=== PATIENT | female | born 1985 | race Hispanic/Latino ===

== ENCOUNTER 2025-03-27 14:03 | Inpatient (IN) | payer BC ==
[2025-03-27] VITALS (7 sets, daily range): BP systolic 90–100; BP diastolic 58–72; PULSE 79–122; RESP 16–20; TEMP 98–100.6; O2SAT 95–100
[~2025-03-27] VITALS: Ht 165.1 cm; Wt 75.6 kg
[2025-03-27] MEDS: ALBUTEROL/IPRATROPIUM 3 ML NEB NEB ONE (14:33)
[2025-03-27] MEDS: SODIUM CHLORIDE 0.9% 1000ML 1,000 ML IV ONE ×2 (15:42→16:47)
[2025-03-27] MEDS: AZITHROMYCIN 250 MG TAB PO ONE (15:42)
[2025-03-27] MEDS ORDERED: ONDANSETRON HCL INJ 2MG/ML 2ML 2 MG/ML VIAL ONE (15:54)
[2025-03-27] MEDS: ONDANSETRON HCL INJ 2MG/ML 2ML 2 MG/ML VIAL IV STA (15:57)
[2025-03-27] MEDS: ALBUTEROL SULF 0.083% NEB SOLN 3 ML NEB NEB SCH (16:30)
[2025-03-27] MEDS: ACETAMINOPHEN 325 MG TAB PO PRN (18:33)
[2025-03-27] MEDS: SODIUM CHLORIDE 0.9% 1000ML 1,000 ML IV SCH (18:35)
[2025-03-27] MEDS: IPRATROPIUM BROMIDE 0.02% 2.5 ML NEB NEB SCH (20:02)
[2025-03-27] MEDS: LEVALBUTEROL HCL SOLN NEBU 0.63 MG/3 ML NEB INH PRN (20:03)
[2025-03-28] VITALS (13 sets, daily range): BP systolic 92–109; BP diastolic 65–73; PULSE 98–122; RESP 14–20; TEMP 99.1–101.1; O2SAT 92–100
[2025-03-28 00:26] LABS: TROPONIN I 0.087 ng/mL (0-0.300)
[2025-03-28 03:31] LABS: TROPONIN I 0.114 ng/mL (0-0.300)
[2025-03-28 06:50] LABS: BASOPHILS # (AUTO) 0.1 (0.0-0.1); BASOPHILS % 0.5 % (0.0-1.0); EOSINOPHILS % 0.2 % (0.0-6.0); HEMATOCRIT 34.6 % (34.2-44.1); HEMOGLOBIN 12.3 g/dL (12.0-16.0); LYMPHOCYTES # (AUTO) 0.7 (1.0-3.2); LYMPHOCYTES % 7.8 % (18.0-39.1); MEAN CORPUSCULAR HEMOGLOBIN 33.5 pg (28-32); MEAN CORPUSCULAR HGB CONC 35.5 g/dL (31-35); MEAN CORPUSCULAR VOLUME 94.3 fL (81-99); MONOCYTES # (AUTO) 0.3 (0.2-0.8); MONOCYTES % 3.4 % (4.4-11.3); RED BLOOD COUNT 3.67 x10e6/uL (3.6-5.1); RED CELL DISTRIBUTION WIDTH 12.2 % (11.7-14.4); WHITE BLOOD COUNT 9.15 x10e3/uL (4.8-10.8)
[2025-03-28 07:00] LABS: PLATELET COUNT 42 x10e3/uL (140-360)
[2025-03-28 07:34] LABS: ANION GAP 14.3 mmol/L (8-16); CALCIUM 7.5 mg/dL (8.4-10.2); CREATININE, SERUM 0.97 mg/dL (0.57-1.11)
[2025-03-28 07:37] LABS: POTASSIUM 3.3 mmol/L (3.5-5.1)
[2025-03-28 08:02] LABS: HIV 1&2 AB SCREEN NON-REACTIVE (NONREACTIVE)
[2025-03-28 08:03] LABS: HIV- 1 P24 AG SCREEN NON-REACTIVE (NONREACTIVE)
[2025-03-28] MEDS: CEFTRIAXONE 2 GM in SODIUM CHLORIDE 0.9% 100 ML IV SCH (08:48)
[2025-03-28 09:29] LABS: LYMPHOCYTES % (MANUAL) 4 % (19-48); MONOCYTES % (MANUAL) 4 % (3.4-9.0); NEUTROPHILS % (MANUAL) 92 % (40-74); PLATELET ESTIMATE MARKEDLY DECREASED; PLATELET MORPHOLOGY COMMENT NORMAL
[2025-03-28 09:30] LABS: RBC MORPHOLOGY COMMENT NORMAL
[2025-03-28] MEDS: LIDOCAINE 4% PATCH TP SCH (11:10)
[2025-03-28] MEDS ORDERED: DOCUSATE SODIUM 100 MG CAP PO PRN (11:30)
[2025-03-28] MEDS ORDERED: ONDANSETRON HCL INJ 2MG/ML 2ML 2 MG/ML VIAL IV PRN (11:30)
[2025-03-28] MEDS ORDERED: CEFTRIAXONE 2 GM in SODIUM CHLORIDE 0.9% 100 ML IV SCH (11:45)
[2025-03-28 17:18] LABS: TROPONIN I 0.155 ng/mL (0-0.300)
[2025-03-28] MEDS ORDERED: MELATONIN 3 MG TAB PO PRN (21:00)
[2025-03-29] VITALS (13 sets, daily range): BP systolic 104–133; BP diastolic 69–81; PULSE 104–121; RESP 16–20; TEMP 98.3–100.6; O2SAT 93–100
[2025-03-29 06:51] LABS: BASOPHILS % 0.4 % (0.0-1.0); HEMATOCRIT 30.9 % (34.2-44.1); LYMPHOCYTES # (AUTO) 1.4 (1.0-3.2); LYMPHOCYTES % 12.5 % (18.0-39.1); MEAN CORPUSCULAR HGB CONC 35.6 g/dL (31-35); MEAN CORPUSCULAR VOLUME 92.8 fL (81-99); MONOCYTES # (AUTO) 0.7 (0.2-0.8); MONOCYTES % 6.8 % (4.4-11.3); NEUTROPHILS # (AUTO) 8.7 (2.1-6.9); NEUTROPHILS % 79.5 % (38.7-80.0); PLATELET COUNT 56 x10e3/uL (140-360); RED BLOOD COUNT 3.33 x10e6/uL (3.6-5.1); RED CELL DISTRIBUTION WIDTH 12.5 % (11.7-14.4); WHITE BLOOD COUNT 10.96 x10e3/uL (4.8-10.8)
[2025-03-29 07:31] LABS: ALBUMIN 2.1 g/dL (3.5-5.0); ALBUMIN/GLOBULIN RATIO 0.7 (0.8-2.0); ANION GAP 12.1 mmol/L (8-16); BILIRUBIN,TOTAL 7.8 mg/dL (0.2-1.2); CREATININE, SERUM 0.72 mg/dL (0.57-1.11); POTASSIUM 3.1 mmol/L (3.5-5.1); TOTAL PROTEIN 5.2 g/dL (6.5-8.1)
[2025-03-29 07:57] LABS: LYMPHOCYTES % (MANUAL) 3 % (19-48); MONOCYTES % (MANUAL) 7 % (3.4-9.0); NEUTROPHILS % (MANUAL) 90 % (40-74)
[2025-03-29 07:58] LABS: PLATELET ESTIMATE MODERATELY DECREASED; PLATELET MORPHOLOGY COMMENT NORMAL; RBC MORPHOLOGY COMMENT NORMAL; TOXIC GRANULATION SLIGHT
[2025-03-29] MEDS: CEFTRIAXONE 2 GM in SODIUM CHLORIDE 0.9% 100 ML IV SCH (09:32)
[2025-03-29 10:17] LABS: HEPATITIS A ANTIBODY IGM (P) Negative; HEPATITIS B CORE IGM (P) Negative; HEPATITIS B SURFACE AG (P) Negative; HEPATITIS C ANTIBODY Non Reactive
[2025-03-29] MEDS ORDERED: IOPAMIDOL 370 MG/ML 100 ML INFUS..BTL INJ ONE (13:03)
[2025-03-30] VITALS (10 sets, daily range): BP systolic 110–123; BP diastolic 64–79; PULSE 74–116; RESP 17–20; TEMP 98.7–100.1; O2SAT 93–97
[2025-03-30] MEDS ORDERED: FOLIC ACID 5 MG/ML VIAL ONE (00:53)
[2025-03-30] MEDS ORDERED: THIAMINE HCL INJ 100 MG/ML 2ML VIAL ONE (00:53)
[2025-03-30] MEDS ORDERED: SODIUM CHLORIDE 0.9% 1000ML 1,000 ML ONE (00:54)
[2025-03-30] MEDS ORDERED: MULTIVITAMINS INJECTION ONE (00:54)
[2025-03-30] MEDS: MULTIVITAMINS- 12 INJECTION 10 ML, FOLIC ACID MDV 1 MG, THIAMINE HCL INJ 100 MG in SODI... IV SCH (01:38)
[2025-03-30 07:35] LABS: BILIRUBIN,DIRECT 7.9 mg/dL (0.0-0.5); BILIRUBIN,TOTAL 9.8 mg/dL (0.2-1.2)
[2025-03-30 07:37] LABS: BILIRUBIN,DIRECT 7.1 mg/dL (0.0-0.5); BILIRUBIN,INDIRECT 3.4 mg/dL (0.3-1.2); BILIRUBIN,TOTAL 10.5 mg/dL (0.2-1.2)
[2025-03-30 07:39] LABS: ANION GAP 13.4 mmol/L (8-16); CREATININE, SERUM 0.65 mg/dL (0.57-1.11); POTASSIUM 4.4 mmol/L (3.5-5.1)
[2025-03-30 14:07] LABS: BASOPHILS % 0.3 % (0.0-1.0); HEMATOCRIT 31.2 % (34.2-44.1); HEMOGLOBIN 11.3 g/dL (12.0-16.0); LYMPHOCYTES # (AUTO) 2.6 (1.0-3.2); LYMPHOCYTES % 24.6 % (18.0-39.1); MEAN CORPUSCULAR HEMOGLOBIN 33.4 pg (28-32); MEAN CORPUSCULAR HGB CONC 36.2 g/dL (31-35); MEAN CORPUSCULAR VOLUME 92.3 fL (81-99); MONOCYTES # (AUTO) 0.7 (0.2-0.8); MONOCYTES % 6.9 % (4.4-11.3); NEUTROPHILS # (AUTO) 7.1 (2.1-6.9); NEUTROPHILS % 66.1 % (38.7-80.0); PLATELET COUNT 99 x10e3/uL (140-360); RED BLOOD COUNT 3.38 x10e6/uL (3.6-5.1); RED CELL DISTRIBUTION WIDTH 12.8 % (11.7-14.4); WHITE BLOOD COUNT 10.74 x10e3/uL (4.8-10.8)
[2025-03-30 15:22] LABS: EOSINOPHILS % (MANUAL) 2 % (0-7); LYMPHOCYTES % (MANUAL) 10 % (19-48); MONOCYTES % (MANUAL) 4 % (3.4-9.0); NEUTROPHILS % (MANUAL) 77 % (40-74); PLATELET ESTIMATE MODERATELY DECREASED; PLATELET MORPHOLOGY COMMENT NORMAL; REACTIVE LYMPHOCYTES 7
[2025-03-30] MEDS: LEVOFLOXACIN 500MG/D5W 100ML 100 ML IV SCH (20:39)
[2025-03-30 22:43] LABS: FREE THYROXINE INDEX 1.7769 (1.4-3.8); T3 UPTAKE 30.85 % (22.5-37.0); THYROID STIMULATING HORMONE 1.25 uIU/mL (0.350-4.940)
[2025-03-30 22:44] LABS: T4 (THYROXINE) 5.76 ug/dL (4.5-10.9)
[2025-03-31] VITALS (11 sets, daily range): BP systolic 111–124; BP diastolic 72–80; PULSE 92–104; RESP 15–21; TEMP 98.6–100.4; O2SAT 93–97
[2025-03-31 00:26] LABS: INR 1.06; PROTHROMBIN TIME 14.8 seconds (11.9-14.5)
[2025-03-31] MEDS: CHLORASEPTIC SPRAY 177 ML BTL MM PRN (13:46)
[2025-03-31 18:47] LABS: BASOPHILS % 0.3 % (0.0-1.0); HEMATOCRIT 28.1 % (34.2-44.1); HEMOGLOBIN 10.3 g/dL (12.0-16.0); LYMPHOCYTES # (AUTO) 3.6 (1.0-3.2); LYMPHOCYTES % 32.4 % (18.0-39.1); MEAN CORPUSCULAR HEMOGLOBIN 32.8 pg (28-32); MEAN CORPUSCULAR HGB CONC 36.7 g/dL (31-35); MEAN CORPUSCULAR VOLUME 89.5 fL (81-99); MONOCYTES # (AUTO) 0.6 (0.2-0.8); MONOCYTES % 5.8 % (4.4-11.3); NEUTROPHILS # (AUTO) 6.4 (2.1-6.9); NEUTROPHILS % 58.3 % (38.7-80.0); PLATELET COUNT 176 x10e3/uL (140-360); RED BLOOD COUNT 3.14 x10e6/uL (3.6-5.1); WHITE BLOOD COUNT 11.04 x10e3/uL (4.8-10.8)
[2025-03-31 19:09] LABS: ALANINE AMINOTRANSFERASE 165 IU/L (0-55); ALBUMIN 2.1 g/dL (3.5-5.0); ALBUMIN/GLOBULIN RATIO 0.6 (0.8-2.0); ALKALINE PHOSPHATASE 301 IU/L (40-150); ANION GAP 11.2 mmol/L (8-16); BILIRUBIN,TOTAL 11.6 mg/dL (0.2-1.2); BLOOD UREA NITROGEN < 5 mg/dL (7-26); CALCIUM 7.8 mg/dL (8.4-10.2); CARBON DIOXIDE 24 mmol/L (22-29); CHLORIDE 101 mmol/L (98-107); EST GLOMERULAR FILTRATION RATE 116 ML/MIN (>=60); GLUCOSE 117 mg/dL (74-118); SODIUM 134 mmol/L (136-145); TOTAL PROTEIN 5.4 g/dL (6.5-8.1)
[2025-03-31 19:31] LABS: BUN/CREATININE RATIO 8 (6-25)
[2025-03-31 19:33] LABS: POTASSIUM 2.2 mmol/L (3.5-5.1)
[2025-03-31 19:53] LABS: LYMPHOCYTES % (MANUAL) 13 % (19-48); MONOCYTES % (MANUAL) 8 % (3.4-9.0); NEUTROPHILS % (MANUAL) 72 % (40-74); REACTIVE LYMPHOCYTES 7
[2025-03-31 20:00] LABS: PLATELET ESTIMATE ADEQUATE; PLATELET MORPHOLOGY COMMENT NORMAL; RBC MORPHOLOGY COMMENT NORMAL
[2025-03-31] MEDS ORDERED: POTASSIUM CHLORIDE 20MEQ/100ML 100 ML IV SCH (20:00)
[2025-03-31] MEDS: POTASSIUM CHLORIDE 20 MEQ TAB CR PO STA (20:07)
[2025-03-31] MEDS: POTASSIUM CHLORIDE 20 MEQ TAB CR PO ONE (20:42)
[2025-04-01] VITALS (11 sets, daily range): BP systolic 104–144; BP diastolic 78–87; PULSE 81–104; RESP 17–24; TEMP 98–99; O2SAT 94–100
[2025-04-01 06:49] LABS: ALANINE AMINOTRANSFERASE 151 IU/L (0-55); ALBUMIN 1.9 g/dL (3.5-5.0); ALBUMIN/GLOBULIN RATIO 0.6 (0.8-2.0); ALKALINE PHOSPHATASE 278 IU/L (40-150); ANION GAP 11.6 mmol/L (8-16); BILIRUBIN,TOTAL 9.3 mg/dL (0.2-1.2); BLOOD UREA NITROGEN < 5 mg/dL (7-26); CALCIUM 7.8 mg/dL (8.4-10.2); CARBON DIOXIDE 24 mmol/L (22-29); CHLORIDE 99 mmol/L (98-107); CREATININE, SERUM 0.55 mg/dL (0.57-1.11); EST GLOMERULAR FILTRATION RATE 118 ML/MIN (>=60); GLUCOSE 113 mg/dL (74-118); SODIUM 132 mmol/L (136-145); TOTAL PROTEIN 5.2 g/dL (6.5-8.1)
[2025-04-01 06:51] LABS: BUN/CREATININE RATIO 9 (6-25); POTASSIUM 2.6 mmol/L (3.5-5.1)
[2025-04-01] MEDS: POTASSIUM CHLORIDE 20MEQ/100ML 100 ML IV ONE ×3 (10:27→16:03)
[2025-04-01 10:51] LABS: BILIRUBIN,DIRECT 6.7 mg/dL (0.0-0.5); BILIRUBIN,TOTAL 8.7 mg/dL (0.2-1.2); TOTAL PROTEIN 5.4 g/dL (6.5-8.1)
[2025-04-01 12:27] LABS: C-REACTIVE PROTEIN 31 mg/L (0-10)
[2025-04-01 18:22] LABS: CHLAMYDIA TRACHOMATIS IGM <0.8 index (0.0-0.7); CHLAMYDOPHILA PSITTACI IGM <1:10 (Neg:<1:10)
[2025-04-01] MEDS: MULTIVITAMINS- 12 INJECTION 10 ML, FOLIC ACID MDV 1 MG, THIAMINE HCL INJ 100 MG in SODI... IV SCH (18:46)
[2025-04-01 19:16] LABS: ALBUMIN 2.2 g/dL (3.5-5.0); BILIRUBIN,DIRECT 5.7 mg/dL (0.0-0.5); BILIRUBIN,TOTAL 8.7 mg/dL (0.2-1.2); TOTAL PROTEIN 6.5 g/dL (6.5-8.1)
[2025-04-01] MEDS: METOPROLOL TARTRATE 25 MG TAB ONE (22:05)
[2025-04-01] MEDS: METOPROLOL TARTRATE 25 MG TAB PO SCH (22:06)
[2025-04-02] VITALS (11 sets, daily range): BP systolic 117–125; BP diastolic 80–88; PULSE 79–98; RESP 17–20; TEMP 97.5–98.6; O2SAT 91–100
[2025-04-02 07:03] LABS: ANION GAP 9.7 mmol/L (8-16); CALCIUM 7.7 mg/dL (8.4-10.2); CREATININE, SERUM 0.57 mg/dL (0.57-1.11)
[2025-04-02 07:05] LABS: POTASSIUM 2.7 mmol/L (3.5-5.1)
[2025-04-02 07:52] LABS: ALBUMIN 1.9 g/dL (3.5-5.0); BILIRUBIN,DIRECT 3.7 mg/dL (0.0-0.5); BILIRUBIN,TOTAL 5.4 mg/dL (0.2-1.2); TOTAL PROTEIN 5.6 g/dL (6.5-8.1)
[2025-04-02] MEDS: POTASSIUM CHLORIDE 20 MEQ TAB CR PO ONE (08:55)
[2025-04-02] MEDS: SODIUM CHLORIDE 0.9% 250ML 250 ML IV SCH (08:56)
[2025-04-02] MEDS: POTASSIUM CHLORIDE 20MEQ/100ML 100 ML IV ONE (08:56)
[2025-04-02] MEDS ORDERED: METOPROLOL TARTRATE 25 MG TAB PO SCH (09:00)
[2025-04-02] MEDS: ALBUTEROL/IPRATROPIUM 3 ML NEB NEB PRN (19:56)
[2025-04-03] VITALS (12 sets, daily range): BP systolic 109–131; BP diastolic 75–88; PULSE 74–102; RESP 16–22; TEMP 97.9–98.8; O2SAT 92–99
[2025-04-03 05:35] LABS: MYCOPLASMA PNEUMO IGG 173 U/mL (0-99); MYCOPLASMA PNEUMO IGM <770 U/mL (0-769)
[2025-04-03 06:21] LABS: BASOPHILS # (AUTO) 0.1 (0.0-0.1); BASOPHILS % 0.6 % (0.0-1.0); HEMATOCRIT 27.1 % (34.2-44.1); HEMOGLOBIN 9.4 g/dL (12.0-16.0); LYMPHOCYTES # (AUTO) 3.8 (1.0-3.2); LYMPHOCYTES % 43.9 % (18.0-39.1); MEAN CORPUSCULAR HGB CONC 34.7 g/dL (31-35); MEAN CORPUSCULAR VOLUME 95.1 fL (81-99); MONOCYTES # (AUTO) 0.6 (0.2-0.8); MONOCYTES % 6.6 % (4.4-11.3); NEUTROPHILS % 46.4 % (38.7-80.0); PLATELET COUNT 331 x10e3/uL (140-360); RED BLOOD COUNT 2.85 x10e6/uL (3.6-5.1); RED CELL DISTRIBUTION WIDTH 13.8 % (11.7-14.4); WHITE BLOOD COUNT 8.64 x10e3/uL (4.8-10.8)
[2025-04-03 06:33] LABS: INR 1.08
[2025-04-03 06:36] LABS: ALBUMIN 2.1 g/dL (3.5-5.0); ALBUMIN/GLOBULIN RATIO 0.6 (0.8-2.0); ANION GAP 10.9 mmol/L (8-16); BILIRUBIN,TOTAL 4.1 mg/dL (0.2-1.2); CALCIUM 7.6 mg/dL (8.4-10.2); CREATININE, SERUM 0.6 mg/dL (0.57-1.11); TOTAL PROTEIN 5.9 g/dL (6.5-8.1)
[2025-04-03 06:43] LABS: POTASSIUM 2.9 mmol/L (3.5-5.1)
[2025-04-03 08:29] LABS: TOXOPLASMA IGG ANTIBODY <3.0
[2025-04-03 08:30] LABS: TOXOPLASMA IGM ANTIBODY <3.0
[2025-04-03] MEDS: POTASSIUM CHLORIDE 20 MEQ TAB CR PO ONE (09:01)
[2025-04-03 16:30] LABS: INR 1.03; PROTHROMBIN TIME 14.4 seconds (11.9-14.5)
[2025-04-03 16:36] LABS: ALBUMIN 2.3 g/dL (3.5-5.0); BILIRUBIN,DIRECT 2.7 mg/dL (0.0-0.5); TOTAL PROTEIN 6.4 g/dL (6.5-8.1)
[2025-04-03 16:39] LABS: ANION GAP 10.8 mmol/L (8-16); CALCIUM 7.9 mg/dL (8.4-10.2); CREATININE, SERUM 0.65 mg/dL (0.57-1.11); POTASSIUM 3.8 mmol/L (3.5-5.1)
[2025-04-04] VITALS (10 sets, daily range): BP systolic 106–129; BP diastolic 85–92; PULSE 71–87; RESP 18–20; TEMP 97.7–98; O2SAT 96–100
[2025-04-04 07:43] LABS: ALBUMIN 2.2 g/dL (3.5-5.0); ALBUMIN/GLOBULIN RATIO 0.6 (0.8-2.0); ANION GAP 11.4 mmol/L (8-16); BILIRUBIN,TOTAL 3.5 mg/dL (0.2-1.2); CALCIUM 7.9 mg/dL (8.4-10.2); CREATININE, SERUM 0.6 mg/dL (0.57-1.11); TOTAL PROTEIN 6.2 g/dL (6.5-8.1)
[2025-04-04 07:44] LABS: POTASSIUM 3.4 mmol/L (3.5-5.1)
[2025-04-05] VITALS (7 sets, daily range): BP systolic 101–127; BP diastolic 72–91; PULSE 74–81; RESP 18–20; TEMP 97.6–98.7; O2SAT 95–100
[2025-04-05 01:03] LABS: % IRON SATURATION 32 % (15-50); IRON 71 ug/dL (50-170); TOTAL IRON BINDING CAPACITY 225 ug/dL (261-478); TRANSFERRIN 161 mg/dL (180-382)
[2025-04-05 07:53] LABS: ALBUMIN 2.4 g/dL (3.5-5.0); ALBUMIN/GLOBULIN RATIO 0.6 (0.8-2.0); ANION GAP 11.6 mmol/L (8-16); BILIRUBIN,TOTAL 3.5 mg/dL (0.2-1.2); CALCIUM 8.2 mg/dL (8.4-10.2); CREATININE, SERUM 0.64 mg/dL (0.57-1.11); POTASSIUM 3.6 mmol/L (3.5-5.1); TOTAL PROTEIN 6.7 g/dL (6.5-8.1)
[2025-04-05] MEDS: POTASSIUM CHLORIDE 20 MEQ TAB CR PO STA (09:25)
== END 2025-04-05 12:30 | disposition home or self-care (01) | DRG 178 ==
LOC: FSED 14:06 → ERHOLD 16:40 → MED/SURG3 17:57 → OBSVTOIN 03-29 08:39
PROVIDERS: ADMIT Internal Medicine; ATTEND Internal Medicine
PROC: HZ2ZZZZ Detoxification Services for Substance Abuse Treatment (ICD-10-PCS; principal; 2025-03-29)
DX: J69.0 Pneumonitis due to inhalation of food and vomit (principal); E87.1 Hypo-osmolality and hyponatremia; J15.9 Unspecified bacterial pneumonia; K70.40 Alcoholic hepatic failure without coma; D69.6 Thrombocytopenia, unspecified; R74.01 Elevation of levels of liver transaminase levels; E87.6 Hypokalemia; K76.0 Fatty (change of) liver, not elsewhere classified; I95.9 Hypotension, unspecified; Z11.52 Encounter for screening for COVID-19; T39.015A Adverse effect of aspirin, initial encounter; F10.10 Alcohol abuse, uncomplicated
CPT/HCPCS: 0223U; 36415; 71046; 71260; 76705; 78580; 80048; 80053; 80076; 80329; 82248; 82550; 82607; 82746; 83518; 83540; 84132; 84155; 84436; 84443; 84466; 84479; 84484; 85025; 85045; 85610; 85730; 86039; 86140; 86631; 86738; 86777; 86778; 87040; 87207; 87390; 87400; 87449; 94640; 94760; 94799; 96374; 99252; 99284; A9540; G0378; G0433; G0435; J0696; J1956; J2405; J3411; J3480; J7030; J7050; J7060; J7070; Q9967